=== PATIENT | female | born 1955 | race Caucasian/White ===

== ENCOUNTER → 2016-11-28 | Outpatient (CLI) | payer OTHER ==
[~2016-11-28] MED LIST: ALEV220T14 PO; CALC-131 PO; CETI-14 PO; COEN1CAP19 PO; IBUP-1129 PO; NYST15T TOPICAL; OXYC1TAB63 PO; SYNT175T PO; VITA100064 PO
[2016-11-28 15:11] LABS: AUTOMATED NEUTROPHIL # 6.7 TH/MM3 (1.8-7.7); BASOPHIL # 0.1 TH/MM3 (0-0.2); BASOPHIL % 1.1 % (0.0-2.0); EOSINOPHIL # 0.1 TH/MM3 (0-0.4); EOSINOPHIL % 1.2 % (0.0-4.0); HEMATOCRIT 45.6 % (35.0-46.0); HEMO FLAGS DIFF FINAL; LYMPH % 23.3 % (9.0-44.0); LYMPHOCYTE # 2.3 TH/MM3 (1.0-4.8); MEAN CELL VOLUME 89.3 FL (80.0-100.0); MEAN CORPUSCULAR HEMOGLOBIN 29.2 PG (27.0-34.0); MEAN CORPUSCULAR HGB CONC 32.7 % (32.0-36.0); MONO % 6.3 % (0.0-8.0); NEUT % 68.1 % (16.0-70.0); PLATELET COUNT 342 TH/MM3 (150-450); RED BLOOD COUNT 5.11 MIL/MM3 (4.00-5.30); RED CELL DISTRIBUTION WIDTH 13.9 % (11.6-17.2); WHITE BLOOD COUNT 9.8 TH/MM3 (4.0-11.0)
[2016-11-28 15:31] LABS: APTT (PATIENT) 28.8 SEC (24.3-30.1); INTERNATIONAL NORMALIZED RATIO 0.9 RATIO; PROTHROMBIN TIME - PATIENT 10.1 SEC (9.8-11.6)
[2016-11-28 15:39] LABS: ALT (GPT) 29 U/L (10-53); ANION GAP 8 MEQ/L (5-15); AST (GOT) 12 U/L (15-37); BICARBONATE 27.9 MEQ/L (21.0-32.0); BLOOD UREA NITROGEN 13 MG/DL (7-18); CHLORIDE 104 MEQ/L (98-107); GLOMERULAR FILTRATION RATE 61 ML/MIN (>89); GLUCOSE,FASTING 100 MG/DL (74-99); POTASSIUM 4.1 MEQ/L (3.5-5.1); SODIUM (NA) 140 MEQ/L (136-145)
[2016-11-28 15:41] LABS: ALKALINE PHOSPHATASE 120 U/L (45-117); TOTAL BILIRUBIN ADULT 0.5 MG/DL (0.2-1.0)
--- NOTE | 2016-11-28 16:23 | RADRPT ---
EXAM DATE/TIME: 11/28/2016 15:17 [place] COMPARISON: No previous studies available for comparison. INDICATIONS : Evaluate for pnuemonia, pneumothorax, or communicable disease. Pre-op abdominal surgery MEDICAL HISTORY : None. SURGICAL HISTORY : Breast reduction ENCOUNTER: Initial ACUITY: 1 day PAIN SCORE: 0/10 LOCATION: Bilateral chest FINDINGS: PA and lateral views of the chest demonstrate the lungs to be symmetrically aerated without evidence of mass, infiltrate or effusion. The cardiomediastinal contours are unremarkable. Osseous structure s are intact. CONCLUSION: No acute disease. Aleksey Santos MD FACR on November 28, 2016 at 16:21 Board Certified Radiologist. This report was verified electronically.
--- NOTE | 2016-11-29 09:58 | EKG ---
Date Performed: 11/28/2016 Time Performed: 14:09:17 PTAGE: 61 years EKG: Sinus rhythm INCOMPLETE RIGHT BUNDLE BRANCH BLOCK BORDERLINE ECG NO PREVIOUS TRACING DOCTOR: Ced Frye Interpretating Date/Time 11/29/2016 09:55:58
== END ==
LOC: CPRE 13:33
PROVIDERS: ATTEND Obstetrics & Gynecology Gynecologic Oncology
DX: Z01.810 Encounter for preprocedural cardiovascular examination (principal); Z01.811 Encounter for preprocedural respiratory examination; Z01.812 Encounter for preprocedural laboratory examination; R19.09 Other intra-abdominal and pelvic swelling, mass and lump; R94.31 Abnormal electrocardiogram [ECG] [EKG]
CPT/HCPCS: 36415; 71020; 80053; 82378; 85025; 85610; 85730; 86304; 93005

== ENCOUNTER 2016-12-04 05:24 | Observation (INO) | payer OTHER ==
[~2016-12-04] VITALS: Ht 160 cm; Wt 106.3 kg
[~2016-12-04 05:24] MED LIST changes: -OXYC1TAB63 PO
[2016-12-04] MEDS ORDERED: INSULIN HUMAN REGULAR 1,000 UNITS/10 ML VIAL SQ PRN (05:45)
[2016-12-04] MEDS ORDERED: POVIDONE IODINE 5% (ANTISEPSIS KIT) 4 APPLICATIONS EACH NARE PRN (05:45)
[2016-12-04] MEDS ORDERED: SODIUM CHLORID 0.9% 500 ML IV PRN (05:45)
[2016-12-04] MEDS ORDERED: CHLORHEXIDINE GLUCONATE 2 % 1 PACK (2 CLOTHS) TOPICAL PRN (05:45)
[2016-12-04] MEDS ORDERED: METOPROLOL TARTRATE 25 MG TAB PO PRN (05:45)
[2016-12-04] MEDS ORDERED: LACTATED RINGER'S 1000 ML IV PRN (05:45)
[2016-12-04] MEDS ORDERED: HEPARIN SODIUM - SQ 10,000 UNITS/ML VIAL SQ SCH (06:00)
[2016-12-04] MEDS ORDERED: LIDOCAINE 2%/EPINEPHrine PF 1:200,000 20ML SDV ONE (06:30)
[2016-12-04] MEDS ORDERED: metroNIDAZOLE 500 MG INJ 100 ML IV ONE ×2 (06:37→06:59)
[2016-12-04] MEDS ORDERED: LEVOFLOXACIN 500 MG PREMIX INJ 100 ML IV ONE ×2 (06:37→07:00)
[2016-12-04] MEDS ORDERED: METRONIDAZOLE 500 MG/100 ML ISONTONIC SOLN IV ONE (07:00)
[2016-12-04] MEDS ORDERED: ACETAMINOPHEN 1000 MG/100 ML 100 ML IV ONE (07:09)
[2016-12-04] MEDS ORDERED: MIDAZOLAM HCL 2 MG/2 ML VIAL ONE (07:09)
[2016-12-04] MEDS ORDERED: SUGAMMADEX SODIUM 200 MG/2 ML VIAL IV PUSH ONE ×2 (07:10)
[2016-12-04] MEDS ORDERED: ARTIFICIAL TEARS OPTH OINT 3.5 APPLIC/3.5 GM TUBO ONE (07:10)
[2016-12-04] MEDS ORDERED: DEXAMETHASONE SOD PHOS 4 MG/ML VIAL ONE (07:10)
[2016-12-04] MEDS ORDERED: FAMOTIDINE 20 MG/2 ML VIAL ONE (07:10)
[2016-12-04] MEDS ORDERED: HYDROmorphone HCL PF 2 MG/ML VIAL ONE (07:10)
[2016-12-04] MEDS ORDERED: METHYLENE BLUE 10 MG/ML VIAL ONE (10:33)
[2016-12-04] MEDS ORDERED: VECURONIUM BROMIDE 20 MG VIAL IV ONE (12:00)
[2016-12-04] MEDS ORDERED: NORMOSOL R INJ 1,000 ML IV ONE (12:00)
[2016-12-04] MEDS ORDERED: PROPOFOL 200 MG/20 ML AMP IV ONE (12:00)
[2016-12-04] MEDS ORDERED: hydrALAZINE HCL 20 MG/ML VIAL IV ONE (12:00)
[2016-12-04] MEDS ORDERED: STERILE WATER FOR INJECTION 20 ML VIAL IV ONE (12:00)
[2016-12-04] MEDS ORDERED: LORazepam 0.5 MG TAB PO PRN (12:45)
[2016-12-04] MEDS ORDERED: diphenhydrAMINE HCL 25 MG CAP PO PRN (12:45)
[2016-12-04] MEDS ORDERED: SODIUM CHLORIDE 0.9% FLUSH 10 ML FLUSH IV FLUSH PRN (12:45)
[2016-12-04] MEDS ORDERED: ONDANSETRON HCL 4 MG/2 ML VIAL IVP PRN (12:45)
[2016-12-04] MEDS ORDERED: *morphine SULFATE 8 MG/ML PERIprocedure ONLY ONE (13:12)
[2016-12-04] MEDS ORDERED: CETIRIZINE HCL 10 MG TAB PO PRN (13:45)
[2016-12-04] MEDS ORDERED: DO NOT ADM ANY ANTICOAGULANT DRUGS PRN (13:45)
[2016-12-04] MEDS: KETOROLAC TROMETHAMINE 30 MG/ML (IVP) VIAL IVP SCH ×2 (14:18→18:57)
[2016-12-04] MEDS: D5-1/2 NS + KCL 20 MEQ INJ 1,000 ML IV SCH (14:18)
--- NOTE | 2016-12-04 15:26 | PD.ONC.PN ---
Subjective Subjective Remarks post op note pt is seen in PACU and doing well she states she still feels tired denies n/v pain controlled awaiting bed on , report given by RN Objective Data Date Time Temp Pulse Resp B/P (MAP) Pulse Ox O2 Delivery O2 Flow Rate FiO2 12/04/16 13:45 97.6 93 22 137/64 (88) 98 Nasal Cannula 2 12/04/16 13:30 87 19 133/62 (85) 96 Nasal Cannula 2 12/04/16 13:15 88 18 136/66 (89) 96 Nasal Cannula 2 12/04/16 13:00 91 20 143/67 (92) 99 Simple Mask 5 12/04/16 12:46 97.5 97 22 135/63 (87) 97 Simple Mask 5 12/04/16 06:13 98.1 70 16 139/69 (92) 95 12/04/16 12/04/16 12/04/16 07:00 15:00 23:00 Intake Total 2000 ml 78 ml Output Total 2550 ml Balance -550 ml 78 ml Administered Medications Medications (Trade) Dose Ordered Sig/Nel Route PRN Reason Start Time Stop Time Status Last Admin Dose Admin Povidone Iodine (Betadine 5% Antisepsis Kit) 1 applic POTASH FLAKER PRN EACH NARE SEE LABEL COMMENTS 12/04/16 05:45 12/07/16 05:44 12/04/16 06:18 Chlorhexidine Gluconate (Chlorhexidine 2% Cloth) 3 pack POTASH FLAKER PRN TOPICAL SEE LABEL COMMENTS 12/04/16 05:45 12/07/16 05:44 12/04/16 05:45 Heparin Sodium (Porcine) (Heparin Inj) 5,000 units POTASH FLAKER SQ 12/04/16 06:00 12/04/16 18:00 12/04/16 06:18 Potassium Chloride/Dextrose/ Sod Cl 1,000 ml @ 100 mls/hr Q10H IV 12/04/16 13:00 12/04/16 14:18 Ketorolac Tromethamine (Toradol Inj) 15 mg Q6H IVP 12/04/16 12:45 12/05/16 06:46 12/04/16 14:18 Objective Remarks GENERAL: Well-nourished, well-developed patient. SKIN: Warm and dry. HEAD: Normocephalic. EYES: No scleral icterus. No injection or drainage. CARDIOVASCULAR: Regular rate and rhythm without murmurs. RESPIRATORY: Breath sounds equal bilaterally. No accessory muscle use. GASTROINTESTINAL: Abdomen soft, SS are c/d/i EXTREMITIES: TEDs MUSCULOSKELETAL: Adequate muscle tone. NEUROLOGICAL: No obvious focal deficit. Awake, alert, and oriented x3. PSYCHIATRIC: Appropriate mood and affect; insight and judgment normal. Assessment/Plan Problem List: (1) Post-operative state ICD Codes: Z98.890 - Other specified postprocedural states Status: Acute Plan: s/p RA lap resection of pelvic mass and L BSO post op orders in computer scheduled Toradol and Percocet PRN ADAT ok to get OOB to chair tonight anticipate discharge in the morning final pathology at follow up in 2 weeks Blank Dewey Dec 04, 2016 15:26
[2016-12-04 16:00] VITALS: BP 122/63; PULSE 89; RESP 20; TEMP 97.9; O2SAT 99
[2016-12-04] MEDS: oxyCODONE/ACETAMINOPHEN 5 MG/325 MG TAB PO PRN ×2 (16:21→21:37)
[2016-12-04 20:00] VITALS: BP 121/58; PULSE 79; RESP 18; TEMP 96.7; O2SAT 99
[2016-12-04] MEDS: SODIUM CHLORIDE 0.9% FLUSH 10 ML FLUSH IV FLUSH SCH (21:00)
[2016-12-05] VITALS: BP 111/55; PULSE 67; RESP 20; TEMP 96.5; O2SAT 99
[2016-12-05] MEDS: KETOROLAC TROMETHAMINE 30 MG/ML (IVP) VIAL IVP SCH ×2 (01:23→05:02)
[2016-12-05] MEDS: D5-1/2 NS + KCL 20 MEQ INJ 1,000 ML IV SCH ×2 (01:24→09:00)
[2016-12-05 04:00] VITALS: BP 123/84; PULSE 70; RESP 20; TEMP 96.3; O2SAT 99
[2016-12-05] MEDS: oxyCODONE/ACETAMINOPHEN 5 MG/325 MG TAB PO PRN ×2 (05:01→08:52)
[2016-12-05] MEDS ORDERED: LEVOTHYROXINE SODIUM 100 MCG TAB PO SCH (06:00)
[2016-12-05] MEDS ORDERED: LEVOTHYROXINE SODIUM 75 MCG TAB PO SCH (06:00)
[2016-12-05] MEDS ORDERED: OXYC1TAB63 PO (06:50)
[2016-12-05 08:00] VITALS: BP 122/64; PULSE 68; RESP 18; TEMP 97; O2SAT 96
[2016-12-05 08:00] LABS: BASOPHIL % 0.3 % (0.0-2.0); EOSINOPHIL # 0.1 TH/MM3 (0-0.4); EOSINOPHIL % 0.6 % (0.0-4.0); HEMATOCRIT 36.9 % (35.0-46.0); HEMO FLAGS DIFF FINAL; LYMPH % 16.5 % (9.0-44.0); LYMPHOCYTE # 1.8 TH/MM3 (1.0-4.8); MEAN CELL VOLUME 90.2 FL (80.0-100.0); MEAN CORPUSCULAR HEMOGLOBIN 30.3 PG (27.0-34.0); MEAN CORPUSCULAR HGB CONC 33.6 % (32.0-36.0); NEUT % 73.6 % (16.0-70.0); PLATELET COUNT 247 TH/MM3 (150-450); RED BLOOD COUNT 4.09 MIL/MM3 (4.00-5.30); RED CELL DISTRIBUTION WIDTH 14.2 % (11.6-17.2); WHITE BLOOD COUNT 10.8 TH/MM3 (4.0-11.0)
[2016-12-05 08:21] LABS: BICARBONATE 26.2 MEQ/L (21.0-32.0); POTASSIUM 3.9 MEQ/L (3.5-5.1)
[2016-12-05] MEDS: SODIUM CHLORIDE 0.9% FLUSH 10 ML FLUSH IV FLUSH SCH (09:00)
--- NOTE | 2016-12-05 22:04 | MD ---
cc: DRISS OBANDO MD, ZOE, ARNP MOLPUS,DYLAN Aquino MD ADMISSION DATE: 12/04/2016 DISCHARGE DATE: 12/05/2016 PROCEDURE 12/04/2016 robotic-assisted laparoscopic resection of large pelvic mass (left salpingo-oophorectomy), left ureterolysis, extensive lysis of adhesions. HOSPITAL COURSE She has done well in the early postoperative period. Hemodynamically stable, tolerating oral intake, ins and outs [id number]/[id number]. Labs are pending. PHYSICAL EXAMINATION VITAL SIGNS Afebrile, pulse 67-93, respirations 18-20, blood pressure 111-137/62-84, O2 saturations greater than or equal to 96%. GENERAL: Alert and oriented x3 in no acute distress. LUNGS: Clear, mild rales at the bases. CARDIOVASCULAR: Regular rate and rhythm. ABDOMEN: Soft. Incision is clean and dry. Minimal ecchymosis around the incision. Abdomen nontender GLASS DRILLER: No bleeding. EXTREMITIES: Nontender. SCDs intact. ASSESSMENT Postoperative day #1, steps taken at surgery. Findings, preliminary pathology reviewed. Activities and restrictions discussed. Questions were answered. She expressed good understanding. PLAN I anticipate she will meet criteria for discharge to home today. She is to resume her prior medications. She will have a prescription for Percocet. Our office number is made available and she is to contact our office to schedule follow up in 2 weeks or to contact us sooner should she have any questions or problems. MD TIA Castillo/ /6:52 AM /9:48 PM
--- NOTE | 2016-12-14 19:56 | MP ---
cc: DYLAN BANKS MD Corrected Copy: 01/02/17 DATE OF SURGERY: 12/04/2016. PREOPERATIVE DIAGNOSIS: 1. Large abdominopelvic mass. 2. Status post total abdominal hysterectomy and right salpingo-oophorectomy. POSTOPERATIVE DIAGNOSIS: 1. Left ovarian cystadenoma. 2. Extensive pelvic adhesions. 3. Status post total abdominal hysterectomy and right salpingo-oophorectomy. OPERATIVE PROCEDURE PERFORMED: Robotic-assisted left salpingo-oophorectomy (resection of approximately 22 cm ovarian mass), left ureterolysis, extensive lysis of adhesions. SURGEON: Dylan Banks MD. WATER PROJECT ENGINEER: [place] therapist's assistant. ANESTHESIA: General endotracheal anesthesia. ESTIMATED BLOOD LOSS: 300 mL. IV FLUIDS: 1600 mL URINE OUTPUT: 150 mL. HISTORY: 61-year-old female found on exam and imaging to have a large abdominopelvic mass that extended several centimeters above the umbilicus and originated in the pelvis and seemed to be of ovarian origin given its location and characteristics. By history, she has had a hysterectomy and had her right tube and ovary removed with a history of severe endometriosis. She is counseled regarding surgical resection. She is in favor of surgical resection. She is seen again in the preop holding area where findings are again reviewed. Questions were answered. She expressed good understanding and agrees to move forward with surgery. FINDINGS: In the pelvis, there is a large, smooth-walled mass that is initially difficult to visualize because it is retroperitonealized and the sigmoid colon is draped over the mass with mesentery obscuring the mass with extensive surrounding adhesions. In the peritoneal cavity itself, adhesions in the pelvis and abdomen relatively minimal adhesions. The liver / diaphragm edges were smooth. despite the adhesions, the large and small bowel and adjacent mesentery grossly appeared normal. There is no peritoneal implants. There is no appreciable adenopathy. The uterus and cervix are surgically absent. The right tube and ovary appeared to be surgically absent although there is fairly fixed dense adhesions against the right pelvic sidewall suggesting postoperative adhesions consistent with her history of having right tube and ovary removed. The right adnexal tissue could not be readily identified. Pathology from the resected mass shows it to be benign favoring cystadenoma and no evidence of malignancy. STATEMENT OF COMPLEXITY: The complexity of this case was significantly increased due to extensive adhesions requiring an estimated two hours of operative time focusing on lysing adhesions to restore normal anatomy to isolate and identify necessary structures and to accomplish surgical objectives. Modifier should be applied accordingly. Body habitus with weight of 105 kg. DESCRIPTION OF THE PROCEDURE IN DETAIL: She was taken to the operating room and placed in dorsal lithotomy position after general endotracheal anesthesia was administered. A time-out was undertaken. She was identified by sight recognition, hospital ID [email or web address] and the proposed procedure was reviewed and confirmed. She was carefully positioned in padded Mario stirrups. Her arms were padded and secured to the sides. She was further secured to the operating table with egg crate padding and tape in a cross chest over the shoulder fashion. All sites were noted be properly aligned with no malalignments or pressure points. She was prepped and draped in sterile fashion and placed in lithotomy position and Pressley catheter inserted and returned to low lithotomy position. Change of sterile gloves was undertaken. We completed draping in anticipation of laparoscopy and confirmed that an orogastric tube was in the stomach on suction. With manual elevation of the abdominal wall and direct laparoscopic visualization, a 5 mm cannula was introduced in the left upper quadrant and an atraumatic entry was confirmed. Carbon dioxide gas was insufflated a 12 mm cannula placed in midline above the umbilicus and 8 mm cannula was placed in the right upper quadrant and the left lateral quadrant. The original 5-mm was exchanged for an 8-mm cannula. She was placed in Trendelenburg position. The anatomy was surveyed with findings as described above. Peritoneal washings were obtained for cytology. The small bowel was folded back on its mesentery to the extent possible but was limited somewhat by adhesions. Three Ray-Alicia sponges were placed around the root of the small bowel mesentery. The robotic system was brought into the operative field and attached in the usual fashion. Monopolar scissors, fenestrated bipolar forceps and Prograsp manipulators were placed in arms numbers one, two and three, respectively; and took my place at the surgeon's console. The anatomy was surveyed and there appeared to be an ovary that had retroperitonealized after a prior hysterectomy and developed into this mass and was fixed behind the peritoneum with colon mesentery, draped over it. After clearly identifying where the mesentery, that from pericolonic fat and the peritoneum dissection was initiated overlying the mass to try to open the peritoneum. Dissection was started on the ventral surface of the mass and with sharp and blunt dissection used to free the colon and mesentery from the ventral aspect of the mass. Dissection was continued laterally to the left pelvic sidewall where retroperitoneal dissection was continued and dissection was continued posteriorly until the ureter was identified and some mobility was provided in the mass. The ureter was densely adherent to the posterolateral aspect of the mass. Distal dissection was carried out to further free the mass from the attachments to the vagina, bladder, posterior cul-de-sac until the residual utero-ovarian ligament was isolated, which was cauterized and transected. Posterior dissection was initiated to help further mobilize the mass still with the capsule intact and this dissection was then carried proximally to allow enough mobilization on the mass so that the gonadal vessels could be identified. With further mobility of the mass and retroperitoneal dissection, the gonadal vessels were isolated, but the ureter was in close proximity due to its adhesions and so blunt and sharp dissection were carried out to free the ureter along its course in the pelvis to free it from its attachments to this mass and to be able to drop it posteriorly to protect it during safe dissection as the ureterolysis was carried out along the ureters course in the pelvis. Now the gonadal vessels were isolated. An opening was made in the peritoneum below the gonadal vessels and they were isolated to the level of the pelvic brim. 0 Vicryl suture was introduced as needle drivers were exchanged for instruments one and three and the infundibulopelvic ligament was tied securely x2 and the needle was removed and then the instruments were returned to the original instruments as the distal portion of the infundibulopelvic ligament was further cauterized near its origin into the ovarian mass. The infundibulopelvic ligament was then transected. The mass was elevated and the remaining posterior adhesions were able to be taken down with sharp dissection. Some bleeding was encountered, which was initially addressed with pressure from the Ray-Alicia sponges until the mass could be lifted to the abdomen and in this process, there was some disruption of the capsule. The fluid component drained so it was suctioned, which markedly reduced the size of the mass and provided better visualization. Isolation of bleeders were rendered hemostatic with cautery and then pelvis which thoroughly irrigated. All sites were hemostatic. Good peristalsis of ureters bilaterally. Given the benign appearance of the mass, it was felt that all reasonable surgical objectives had been completed so the robotic instruments were removed. The robotic system was disengaged from the operative field and I reentered the bedside under sterile condition. A 12-mm cannula was exchanged for 15 mm cannula as a 15 cm EndoCatch bag was used to capture the left ovarian mass brought to the abdominal wall. Additional fluid component was drained and the solid components were grasped with instrument in a stepwise fashion until the mass could be completely removed with the wall of it contained within the EndoCatch bag. This was sent for frozen section analysis which eventually returned with a benign diagnosis. The 12 mm fascial defect was closed with interrupted #0 Vicryl sutures using a needle pass apparatus. They were tied securely which rendered the fascia completely airtight and hemostatic. the remaining cannulas were withdrawn. Carbon dioxide gas was removed. 3-0 Vicryl subcutaneous, 3-0 Vicryl subcuticular and Steri-Strips were used to close these incisions. Pelvic exam confirmed there were no remaining foreign objects in the vagina. Preliminary and final counts were correct. She was returned to dorsal supine position and was pending reversal of anesthesia when I left the operating room to precede her to the post-anesthesia care unit. MD TIA Castillo/SJ /7:40 AM /2:48 PM
== END 2016-12-05 12:48 | disposition home or self-care (01) ==
LOC: HSDC 05:24 → HSDI 12:43 → HOCB 15:29
PROVIDERS: ADMIT Obstetrics & Gynecology Gynecologic Oncology; ATTEND Obstetrics & Gynecology Gynecologic Oncology
DX: D27.1 Benign neoplasm of left ovary (principal); N73.6 Female pelvic peritoneal adhesions (postinfective); Z90.710 Acquired absence of both cervix and uterus
CPT/HCPCS: 00840; 50949; 58661; 80048; 85025; 86850; 86900; 86901; 88307; 88331; 96361; 96374; 96376; G0378; J0131; J0360; J1100; J1170; J1644; J1885; J2250; J2270; J3010; J3480; J7120; 88305; J1956